=== PATIENT | male | born 1940 | race Caucasian/White ===

== ENCOUNTER 2019-04-15 22:24 | Inpatient (IN) | payer OTHER, MEDICARE ==
[~2019-04-15] VITALS: Ht 170.2 cm; Wt 68.0 kg
[~2019-04-15 22:24] MED LIST: ASPI81EC; ATEN50; DOXA4; LEVSOD100
[2019-04-15 23:04] LABS: BASOPHILS ABSOLUTE AUTO 0.07 K/mm3 (0.00-0.23); BASOPHILS PERCENT AUTO 1 % (0-2); EOSINOPHILS ABSOLUTE AUTO 0.19 K/mm3 (0.00-0.68); EOSINOPHILS PERCENT AUTO 2 % (0-6); Hematocrit 39.6 % (37.0-53.0); Hemoglobin 12.7 g/dL (13.5-17.5); IMMATURE GRAN ABSOLUTE AUTO 0.05 K/mm3 (0.00-0.10); IMMATURE GRAN PERCENT AUTO 0 % (0-1); LYMPHOCYTES PERCENT AUTO 25 % (21-46); MONOCYTES ABSOLUTE AUTO 1.37 K/mm3 (0.16-1.47); MONOCYTES PERCENT AUTO 12 % (4-13); Mean Corpuscular HGB 31.5 pg (26.0-34.0); Mean Corpuscular HGB Conc 32.1 g/dL (31.5-36.5); Mean Corpuscular Volume 98 fL (80-100); Mean Platelet Volume 9.1 fL (9.1-12.4); NEUTROPHILS ABSOLUTE AUTO 6.92 K/mm3 (1.96-9.15); NEUTROPHILS PERCENT AUTO 61 % (41-73); Platelet Count 236 K/mm3 (150-400); RDW Coefficient Variation 13.3 % (11.7-14.2); Red Blood Cell Count 4.03 M/mm3 (4.30-5.90)
[2019-04-15 23:20] LABS: International Normalized Ratio 2.55; Prothrombin Time Results 24.8 Sec (9.7-11.5)
[2019-04-15 23:24] LABS: Alanine Aminotransfer (ALT/SGP 19 U/L (12-78); Albumin, Blood 3.1 g/dL (3.4-5.0); Albumin/Globulin Ratio 0.9 (0.8-1.8); Alk Phos 99 U/L (50-136); Anion Gap 5 mmol/L (6-16); Aspartate Aminotrans (AST/SGOT 12 U/L (12-37); Bilirubin, Total 0.3 mg/dL (0.1-1.0); Blood Urea Nitrogen 14 mg/dL (8-24); Bun/Creatinine Ratio 17.5 (12.0-20.0); CO2, Blood 31 mmol/L (21-32); Calcium, Blood 8.5 mg/dL (8.5-10.1); Chloride, Blood 103 mmol/L (98-108); Globulin, Blood 3.6 g/dL (2.2-4.0); Glomerular Filtration Rate >60 (60-); Glucose, Blood 115 mg/dL (70-99); Potassium, Blood 3.4 mmol/L (3.5-5.5); Sodium, Blood 139 mmol/L (136-145); Total Protein, Blood 6.7 g/dL (6.4-8.2)
[2019-04-15] MEDS ORDERED: DILT120ERA PO (23:51)
[2019-04-15] MEDS ORDERED: ALBU90OI INH (23:51)
[2019-04-15] MEDS ORDERED: Colace100 MG PO (23:52)
[2019-04-15] MEDS ORDERED: DOXA2 PO (23:53)
[2019-04-15] MEDS ORDERED: SYNTHROID175 MCG PO (23:53)
[2019-04-15] MEDS ORDERED: METO25 PO (23:54)
[2019-04-15] MEDS ORDERED: Hair, Skin & N1 EACH PO (23:54)
[2019-04-15] MEDS ORDERED: OMEPRAZOLE20 MG PO (23:55)
[2019-04-15] MEDS ORDERED: TIOT18 INH (23:55)
[2019-04-15] MEDS ORDERED: SILD50TA PO (23:55)
[2019-04-15] MEDS ORDERED: WARF5 (23:57)
[2019-04-16] MEDS ORDERED: FERSU300 PO (01:53)
[2019-04-16 05:30] LABS: BASOPHILS ABSOLUTE AUTO 0.04 K/mm3 (0.00-0.23); BASOPHILS PERCENT AUTO 0 % (0-2); EOSINOPHILS ABSOLUTE AUTO 0.01 K/mm3 (0.00-0.68); EOSINOPHILS PERCENT AUTO 0 % (0-6); Hematocrit 39.4 % (37.0-53.0); Hemoglobin 12.7 g/dL (13.5-17.5); IMMATURE GRAN ABSOLUTE AUTO 0.08 K/mm3 (0.00-0.10); IMMATURE GRAN PERCENT AUTO 1 % (0-1); LYMPHOCYTES ABSOLUTE AUTO 1.03 K/mm3 (0.84-5.20); LYMPHOCYTES PERCENT AUTO 7 % (21-46); MONOCYTES ABSOLUTE AUTO 1.24 K/mm3 (0.16-1.47); MONOCYTES PERCENT AUTO 8 % (4-13); Mean Corpuscular HGB 31.4 pg (26.0-34.0); Mean Corpuscular HGB Conc 32.2 g/dL (31.5-36.5); Mean Corpuscular Volume 98 fL (80-100); Mean Platelet Volume 8.8 fL (9.1-12.4); NEUTROPHILS ABSOLUTE AUTO 12.73 K/mm3 (1.96-9.15); NEUTROPHILS PERCENT AUTO 84 % (41-73); Platelet Count 228 K/mm3 (150-400); RDW Coefficient Variation 13.3 % (11.7-14.2); RDW Standard Deviation 47.5 fL (35.1-46.3); Red Blood Cell Count 4.04 M/mm3 (4.30-5.90); White Blood Cell Count 15.13 K/mm3 (4.00-11.30)
[2019-04-16 05:46] LABS: Anion Gap 3 mmol/L (6-16); Blood Urea Nitrogen 13 mg/dL (8-24); Bun/Creatinine Ratio 19.4 (12.0-20.0); CO2, Blood 31 mmol/L (21-32); Calcium, Blood 8.5 mg/dL (8.5-10.1); Chloride, Blood 104 mmol/L (98-108); Creatinine, Blood 0.67 mg/dL (0.60-1.20); Glomerular Filtration Rate >60 (60-); Glucose, Blood 137 mg/dL (70-99); International Normalized Ratio 1.77; Potassium, Blood 4.5 mmol/L (3.5-5.5); Sodium, Blood 138 mmol/L (136-145)
[2019-04-16 05:50] LABS: Prothrombin Time Results 17.8 Sec (9.7-11.5)
--- NOTE | 2019-04-16 07:35 | NUR ---
PT NEW ADMIT THIS SHIFT FOR LEFT HIP FX. PT VSS, HR AFIB 90-100'S PER TELE MONITOR. SATS >90% ON 1LNC AFTER PAIN MEDS GIVEN. PT DENIED N/T TO LLE, CAP REFILL WNL. PT NPO X MEDS SINCE ARRIVING TO FLOOR, IVF CONT PER ORDERS. REPORT GIVEN TO DAY RN.
[2019-04-16 15:27] LABS: Source, Urine Catheter
[2019-04-16 15:39] LABS: Bilirubin, Urine Neg (Neg); Blood, Urine Neg (Neg); Glucose Qualitative, Urine Neg (Neg); Ketones, Urine Neg (Neg); Leukocyte Esterase, Urine Neg (Neg); Nitrite, Urine Neg (Neg); Protein, Urine Neg (Neg); Urobilinogen, Urine 1+ (Normal)
[2019-04-16 15:47] LABS: Appearance, Urine Clear (Clear); Color, Urine Yellow (P-Yellow)
--- NOTE | 2019-04-16 18:28 | NUR ---
SHIFT SUMMARY PATIENT STATES PAIN TOLERABLE. CIRC CHECKS TO LLE WNL. PATIENT HAD EMESIS X2 THIS AFTERNOON. ATE ROLL AT DINNER W/O C/O NAUSEA. FAMILY IN TO SEE T/O SHIFT. PLAN FOR OC TO OR TOMORROW.
--- NOTE | 2019-04-17 05:23 | NUR ---
SHIFT SUMMARY LYING IN SEMI FOWLERS. ABLE TO REPOSITION SELF IN BED. HAS C/O N/V X2 THIS SHIFT. REFUSES PAIN MEDS WHEN OFFERED SEVERAL TIMES. DENIES FURTHER NEEDS AT THIS TIME. SAFETY MEASURES IN PLACE. WILL GIVE HAND OFF TO ONCOMING SHIFT USING SBAR.
[2019-04-17 10:06] LABS: International Normalized Ratio 1.01; Prothrombin Time Results 10.7 Sec (9.7-11.5)
--- NOTE | 2019-04-17 16:05 | NUR ---
PATIENT TO DAY SURGERY AT THIS TIME.
--- NOTE | 2019-04-17 16:10 | NUR ---
INTO SDS VIA BED. PT A&OX3. PT REPORTS 5/10 LEFT HIP PAIN.HISTORY AND ALLERGIES REVIEWED. NPO STATUS CONFIRMED. LUNGS DIMINISHED THROUGH OUT. SATS>90% ON RA. PAS ON PT-NO PREP DONE DUE TO PAIN.
--- NOTE | 2019-04-18 06:44 | NUR ---
SHIFT SUMMARY LYING IN SEMI FOWLERS. ABLE TO REPOSITION SELF IN BED. REFUSES PAIN MEDS WHEN OFFERED SEVERAL TIMES. DENIES FURTHER NEEDS AT THIS TIME. SAFETY MEASURES IN PLACE. WILL GIVE HAND OFF TO ONCOMING SHIFT USING SBAR.
[2019-04-18 09:49] LABS: BASOPHILS ABSOLUTE AUTO 0.01 K/mm3 (0.00-0.23); BASOPHILS PERCENT AUTO 0 % (0-2); EOSINOPHILS PERCENT AUTO 0 % (0-6); Hematocrit 32.1 % (37.0-53.0); Hemoglobin 10.8 g/dL (13.5-17.5); IMMATURE GRAN ABSOLUTE AUTO 0.08 K/mm3 (0.00-0.10); IMMATURE GRAN PERCENT AUTO 1 % (0-1); LYMPHOCYTES ABSOLUTE AUTO 1.15 K/mm3 (0.84-5.20); LYMPHOCYTES PERCENT AUTO 8 % (21-46); MONOCYTES ABSOLUTE AUTO 1.42 K/mm3 (0.16-1.47); MONOCYTES PERCENT AUTO 10 % (4-13); Mean Corpuscular HGB 31.7 pg (26.0-34.0); Mean Corpuscular HGB Conc 33.6 g/dL (31.5-36.5); Mean Platelet Volume 9.1 fL (9.1-12.4); NEUTROPHILS ABSOLUTE AUTO 10.95 K/mm3 (1.96-9.15); NEUTROPHILS PERCENT AUTO 81 % (41-73); Platelet Count 215 K/mm3 (150-400); RDW Coefficient Variation 13.1 % (11.7-14.2); RDW Standard Deviation 45.3 fL (35.1-46.3); Red Blood Cell Count 3.41 M/mm3 (4.30-5.90); White Blood Cell Count 13.61 K/mm3 (4.00-11.30)
[2019-04-18 09:51] LABS: Mean Corpuscular Volume 94 fL (80-100)
--- NOTE | 2019-04-18 18:19 | NUR ---
SHIFT SUMMARY PT EATING AND DRINKING. PT WORKED WITH THERAPY AND IS UP IN CHAIR. PT BEEN ASSISTED WITH ADL'S PRN. PT BEEN MED FOR PAIN PRN. FAMILY IN/OUT OF ROOM. PT USING [employer] LIGHT APPR.
[2019-04-19 04:09] LABS: BASOPHILS ABSOLUTE AUTO 0.02 K/mm3 (0.00-0.23); BASOPHILS PERCENT AUTO 0 % (0-2); EOSINOPHILS ABSOLUTE AUTO 0.01 K/mm3 (0.00-0.68); EOSINOPHILS PERCENT AUTO 0 % (0-6); Hematocrit 30.5 % (37.0-53.0); Hemoglobin 9.8 g/dL (13.5-17.5); IMMATURE GRAN ABSOLUTE AUTO 0.06 K/mm3 (0.00-0.10); IMMATURE GRAN PERCENT AUTO 1 % (0-1); LYMPHOCYTES ABSOLUTE AUTO 1.69 K/mm3 (0.84-5.20); LYMPHOCYTES PERCENT AUTO 15 % (21-46); MONOCYTES ABSOLUTE AUTO 1.57 K/mm3 (0.16-1.47); MONOCYTES PERCENT AUTO 14 % (4-13); Mean Corpuscular HGB 31.5 pg (26.0-34.0); Mean Corpuscular HGB Conc 32.1 g/dL (31.5-36.5); Mean Platelet Volume 9.1 fL (9.1-12.4); NEUTROPHILS ABSOLUTE AUTO 8.19 K/mm3 (1.96-9.15); NEUTROPHILS PERCENT AUTO 71 % (41-73); Platelet Count 203 K/mm3 (150-400); RDW Coefficient Variation 13.3 % (11.7-14.2); RDW Standard Deviation 47.3 fL (35.1-46.3); Red Blood Cell Count 3.11 M/mm3 (4.30-5.90); White Blood Cell Count 11.54 K/mm3 (4.00-11.30)
[2019-04-19 04:22] LABS: Mean Corpuscular Volume 98 fL (80-100)
[2019-04-19 04:24] LABS: International Normalized Ratio 0.94
--- NOTE | 2019-04-19 05:37 | NUR ---
PATIENT STATED THAT HE SLEPT VERY WELL LAST NIGHT. THE URINARY CATH WAS REMOVED AT 0430. THE GOAL IS TO GET HIM OOB BEFORE THE CHANGE OF SHIFT AND SEE IF HE IS ABLE TO VOID. NO OTHER ACUTE CHANGES.
--- NOTE | 2019-04-19 10:35 | NUR ---
DR KITCHEN AND TAE BEEN TO SEE PT. DISCUSSED PT'S HR AND MEDS GIVEN.
--- NOTE | 2019-04-19 11:00 | NUR ---
TELE REPORTS HR LOW 100'S.
--- NOTE | 2019-04-19 16:56 | NUR ---
SHIFT SUMMARY PT EATING AND DRINKING. PT VOIDING. PT PASSING GAS. PT BEEN SEEN BY THERAPY TODAY. DR KITCHEN AND TAE BEEN TO SEE PT TODAY. PT BEEN ASSISTED WITH ADL'S PRN. PT BEEN MED FOR PAIN PRN. FAMILY IN TO SEE PT TODAY. PT ATE BREAKFEAST IN BED AND HAS BEEN UP TO CHAIR AFTER WORKING WITH THERAPY THIS AM.
[2019-04-20 05:12] LABS: BASOPHILS ABSOLUTE AUTO 0.04 K/mm3 (0.00-0.23); BASOPHILS PERCENT AUTO 0 % (0-2); EOSINOPHILS ABSOLUTE AUTO 0.29 K/mm3 (0.00-0.68); EOSINOPHILS PERCENT AUTO 2 % (0-6); Hematocrit 31.1 % (37.0-53.0); Hemoglobin 10.3 g/dL (13.5-17.5); IMMATURE GRAN ABSOLUTE AUTO 0.07 K/mm3 (0.00-0.10); IMMATURE GRAN PERCENT AUTO 1 % (0-1); LYMPHOCYTES ABSOLUTE AUTO 2.09 K/mm3 (0.84-5.20); LYMPHOCYTES PERCENT AUTO 17 % (21-46); MONOCYTES ABSOLUTE AUTO 1.59 K/mm3 (0.16-1.47); MONOCYTES PERCENT AUTO 13 % (4-13); Mean Corpuscular HGB 31.5 pg (26.0-34.0); Mean Corpuscular HGB Conc 33.1 g/dL (31.5-36.5); Mean Platelet Volume 9.1 fL (9.1-12.4); NEUTROPHILS ABSOLUTE AUTO 8.17 K/mm3 (1.96-9.15); NEUTROPHILS PERCENT AUTO 67 % (41-73); Platelet Count 224 K/mm3 (150-400); RDW Coefficient Variation 13.3 % (11.7-14.2); RDW Standard Deviation 46.7 fL (35.1-46.3); Red Blood Cell Count 3.27 M/mm3 (4.30-5.90); White Blood Cell Count 12.25 K/mm3 (4.00-11.30)
[2019-04-20 05:13] LABS: Mean Corpuscular Volume 95 fL (80-100)
--- NOTE | 2019-04-20 05:26 | NUR ---
PATIENT HAD A SLEEPING PILL AT THE BEGINNING OF THE SHIFT AND HE EFFECTIVELY SLEPT ALL NIGHT. WOKE ONCE TO USE THE URINAL. NO ACUTE CHANGES AND NO COMPLAINTS OF PAIN THIS AM.
[2019-04-20 05:27] LABS: International Normalized Ratio 0.97; Prothrombin Time Results 10.3 Sec (9.7-11.5)
--- NOTE | 2019-04-20 19:59 | NUR ---
SHIFT SUMMARY PT EATING AND DRINKING. PT PASSING GAS BUT NO BM TODAY, PT BEEN ENCOURAGED WITH BOWEL CARE, BUT REFUSING SOME OPTIONS RECCOMENDED (PRUNE JUICE COCKTAIL, SUPPOSITORY). PT BEEN ASSISTED WITH ADL'S PRN. PT VOIDING WITHOUT DIFF. PT WORKED WITH THERAPY TODAY. PT FAMILY IN ROOM MOST OF DAY TODAY. CASE MANAGEMENT ASSISTING WITH DISCHARGE PLANNING. PT BEEN UP TO CHAIR MOST OF DAY.
--- NOTE | 2019-04-21 05:19 | NUR ---
SUMMARY: POD 4 LEFT FEMUR GAMMA NAILING BY DR. STRONG. VSS, AFEBRILE, ROOM AIR, TOLERATING PO INTAKE AND VOIDING CLEAR, YELLOW URINE. PT PAIN WELL CONTROLLED WITH 1 TAB NORCO X2 THIS SHIFT. ENCOURAGE BOWEL CARE AND AWAIT RESULTS OF SUPPOSITORY PT REQUESTED BE GIVEN @ 0600 THIS MORNING. ANTICIPATE DC HOME LATER THIS DAY ONCE DC PLANNING HAS BEEN COORDINATED WITH [facility].
[2019-04-21 06:02] LABS: International Normalized Ratio 1.09; Prothrombin Time Results 11.5 Sec (9.7-11.5)
[2019-04-21] MEDS ORDERED: MIRALAX17 GM PO (10:51)
[2019-04-21] MEDS ORDERED: ACET325 PO (10:51)
--- NOTE | 2019-04-21 12:05 | NUR ---
DISCHARGE PT D/C'D VIA W/C. EXTRA DRSGS GIVEN AND GAURAVEL DRSG CHANGED ON BOTH STAPLE SITES PRIOR TO D/C. HOME HEALTH RN IN TO SEE PT PRIOR TO D/C.
== END 2019-04-21 12:00 | disposition home health service (06) | DRG 481 ==
LOC: ER 22:24 → SURS 04-16 00:34
PROVIDERS: Emergency Medicine; Internal Medicine; Nurse Practitioner Acute Care; Orthopaedic Surgery; Pharmacist; ADMIT Internal Medicine
PROC: 0QS704Z Reposition Left Upper Femur with Internal Fixation Device, Open Approach (ICD-10-PCS; principal; 2019-04-17 15:30)
DX: S72.92XA Unspecified fracture of left femur, initial encounter for closed fracture (principal); I48.20 Chronic atrial fibrillation, unspecified; Z79.01 Long term (current) use of anticoagulants; K59.09 Other constipation; J44.9 Chronic obstructive pulmonary disease, unspecified; I10 Essential (primary) hypertension; K21.9 Gastro-esophageal reflux disease without esophagitis; E87.6 Hypokalemia; E03.9 Hypothyroidism, unspecified; Z86.73 Personal history of transient ischemic attack (TIA), and cerebral infarction without residual deficits; W19.XXXA Unspecified fall, initial encounter; E78.5 Hyperlipidemia, unspecified; Z87.891 Personal history of nicotine dependence
CPT/HCPCS: 36415; 71045; 73502; 73552; 80048; 80053; 81003; 85025; 85610; 85730; 86850; 86900; 86901; 93005; 93010; 94640; 94760; 94762; 96374; 96375; 97110; 97116; 97162; 97530; 99284-25; A9270-GY; C1713; J0690; J1100; J1170; J2250; J2270; J2370; J2405; J2704; J2710; J2765; J3010; J3430; J3480; J7120

== ENCOUNTER 2019-04-29 11:47 | Emergency (ER) | payer OTHER ==
[~2019-04-29] VITALS: Ht 172.7 cm; Wt 68.0 kg
[~2019-04-29 11:47] MED LIST changes: +ACET325 PO; +ALBU90OI INH; +Colace100 MG PO; +DILT120ERA PO; +DOXA2 PO; +FERSU300 PO; +Hair, Skin & N1 EACH PO; +METO25 PO; +MIRALAX17 GM PO; +OMEPRAZOLE20 MG PO; +SILD50TA PO; +SYNTHROID175 MCG PO; +TIOT18 INH; +WARF5
[2019-04-29 12:41] LABS: BASOPHILS ABSOLUTE AUTO 0.06 K/mm3 (0.00-0.23); BASOPHILS PERCENT AUTO 0 % (0-2); EOSINOPHILS ABSOLUTE AUTO 0.02 K/mm3 (0.00-0.68); EOSINOPHILS PERCENT AUTO 0 % (0-6); Hematocrit 34.4 % (37.0-53.0); Hemoglobin 11.2 g/dL (13.5-17.5); IMMATURE GRAN ABSOLUTE AUTO 0.17 K/mm3 (0.00-0.10); IMMATURE GRAN PERCENT AUTO 1 % (0-1); LYMPHOCYTES ABSOLUTE AUTO 1.48 K/mm3 (0.84-5.20); LYMPHOCYTES PERCENT AUTO 6 % (21-46); MONOCYTES ABSOLUTE AUTO 1.75 K/mm3 (0.16-1.47); MONOCYTES PERCENT AUTO 7 % (4-13); Mean Corpuscular HGB 31.7 pg (26.0-34.0); Mean Corpuscular HGB Conc 32.6 g/dL (31.5-36.5); Mean Corpuscular Volume 98 fL (80-100); Mean Platelet Volume 8.7 fL (9.1-12.4); NEUTROPHILS ABSOLUTE AUTO 20.56 K/mm3 (1.96-9.15); NEUTROPHILS PERCENT AUTO 86 % (41-73); Platelet Count 420 K/mm3 (150-400); RDW Coefficient Variation 13.8 % (11.7-14.2); RDW Standard Deviation 49.3 fL (35.1-46.3); Red Blood Cell Count 3.53 M/mm3 (4.30-5.90); White Blood Cell Count 24.04 K/mm3 (4.00-11.30)
[2019-04-29 12:48] LABS: Source, Urine Catheter
[2019-04-29 12:53] LABS: Alanine Aminotransfer (ALT/SGP 27 U/L (12-78); Albumin, Blood 2.6 g/dL (3.4-5.0); Albumin/Globulin Ratio 0.6 (0.8-1.8); Alk Phos 119 U/L (50-136); Anion Gap 5 mmol/L (6-16); Aspartate Aminotrans (AST/SGOT 26 U/L (12-37); Bilirubin, Total 0.5 mg/dL (0.1-1.0); Blood Urea Nitrogen 15 mg/dL (8-24); Bun/Creatinine Ratio 19.5 (12.0-20.0); CO2, Blood 29 mmol/L (21-32); Calcium, Blood 8.3 mg/dL (8.5-10.1); Chloride, Blood 98 mmol/L (98-108); Creatinine, Blood 0.77 mg/dL (0.60-1.20); Glomerular Filtration Rate >60 (60-); Glucose, Blood 120 mg/dL (70-99); Potassium, Blood 4.1 mmol/L (3.5-5.5); Sodium, Blood 132 mmol/L (136-145); Total Protein, Blood 6.6 g/dL (6.4-8.2)
[2019-04-29] MEDS ORDERED: Percocet 5-3251 EACH PO (12:56)
[2019-04-29] MEDS ORDERED: Zocor20 MG PO (12:57)
[2019-04-29] MEDS ORDERED: TAMS.4ER PO (12:58)
[2019-04-29] MEDS ORDERED: ZOLP5 PO (12:59)
[2019-04-29 13:00] LABS: Bilirubin, Urine Neg (Neg); Blood, Urine 5+ (Neg); Glucose Qualitative, Urine Neg (Neg); Ketones, Urine 1+ (Neg); Leukocyte Esterase, Urine 3+ (Neg); Nitrite, Urine Neg (Neg); Protein, Urine 4+ (Neg); Urobilinogen, Urine 1+ (Normal)
[2019-04-29 13:06] LABS: Appearance, Urine Cloudy (Clear); Color, Urine Yellow (P-Yellow)
[2019-04-29 13:09] LABS: Red Blood Cells, Urine 25-50 /hpf (0-2); White Blood Cells, Urine TNTC /hpf (0-5)
[2019-04-29 13:10] LABS: Bacteria Many /hpf; Squamous Epithelial Cells Not Seen /hpf (Few)
[2019-04-29] MEDS ORDERED: CEPH500 PO (14:43)
== END 2019-04-29 14:41 | disposition home or self-care (01) ==
LOC: ER 11:47
PROVIDERS: Emergency Medicine
DX: N39.0 Urinary tract infection, site not specified (principal); I48.91 Unspecified atrial fibrillation; E03.9 Hypothyroidism, unspecified; Z86.718 Personal history of other venous thrombosis and embolism; J44.9 Chronic obstructive pulmonary disease, unspecified; I10 Essential (primary) hypertension; Z86.73 Personal history of transient ischemic attack (TIA), and cerebral infarction without residual deficits; E78.5 Hyperlipidemia, unspecified; E61.1 Iron deficiency; Z88.8 Allergy status to other drugs, medicaments and biological substances; Z79.51 Long term (current) use of inhaled steroids; Z79.01 Long term (current) use of anticoagulants; Z79.899 Other long term (current) drug therapy
CPT/HCPCS: 80053; 81001; 85025; 87077; 87086; 87186; 93005; 93010; 96361; 96365; 99284-25; J0696; J7030